=== PATIENT | female | born 2005 | race Two or more races ===

== ENCOUNTER 2024-08-15 08:42 | Emergency (ER) | payer SELFPAY ==
[2024-08-15 08:50] VITALS: BP 141/104; PULSE 82; RESP 16; TEMP 36.1; O2SAT 98; BMI 41.4
[2024-08-15 08:58] VITALS: BP 122/84
--- OUTSIDE RECORDS SUMMARY | 2024-08-15 09:45 | XMS_ITS | Clinical Summary ---
Author Organization [facility] Address [address] [place] [phone] Phone Care Team Providers Care Marketing Support Manager Name Role Phone Unavailable Primary Care Provider Unavailabl e Allergies No known active allergies Medications aluminum chloride (DRYSOL) 20 % external solution Apply 20 % topically. 6 Active albuterol HFA (PROAIR HFA) 108 (90 BASE) MCG/ACT inhalerIndicatio ns:Pharyngitis, unspecified etiology Inhale 2 puffs every 4 (four) hours as needed for wheezing. 1 Units 1 7 Active oxymetazoline 0.05 % nasal sprayIndications :Rhinitis, unspecified type Administer 1 spray into each nostril 2 (two) times a day for 3 days. Do NOT use for more than 3 days 1 Units 9 Active cetirizine (ZYRTEC ALLERGY) 10 MG tabletIndication s:Rhinitis, unspecified type Take 1 tablet (10 mg total) by mouth nightly as needed for allergies. 30 tablet 1 9 Active fluticasone (FLONASE) 50 MCG/ACT nasal sprayIndications :Rhinitis, unspecified type 1-2 sprays in each nostril for rhinitis 1 Units 3 9 Active Additional Information Patient not taking.Reported on 01/12/2020 Active Problems Problem Noted Date Diagnosed Date Depression 01/14/2021 Elevated cholesterol 01/14/2021 BMI greater than 95% for age [Z68.54] 01/15/2020 Assessment & Plan (01/15/2020 9:16 PM EST): Discussed: Limit sugar-sweetened beverages Eat at least 5 servings of fruits and vegetables per day Moderate to vigorous physical activity for 60 min per day Limit screen time to <2 hours/day Eat breakfast every day Limit eating out, especially fast food Have regular family meals Limit portion size Current moderate episode of major depressive disorder without prior episode 05/25/2017 Overview (04/07/2018): June 2017- Pt scored 11 on PHQ 9 reporting nearly everyday feeling depressed, trouble falling asleep, feeling tired and lack of motivation. Several days she struggles with concentration and being fidgety and/or slow. Pt's mother currently in hospice and dying from cancer. Grandmother is guardian and is worried Pt is not expressing her emotions related to mother dying. Pt avoids talking about it as well as sometimes avoids being around mother. Pt does well academically and behaviorally at school. 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 Return for yearly physical. Pt cell #: [phone] Assessment & Plan (04/25/2018 10:39 PM EST): Génesis tolerated the procedure well and understands that she needs to return for a urine HCG in 2 weeks. She understands that she may have some minor discomfort or bruising of her arm in the next few days. She will call with any redness, warmth, or fever. She understands that she needs to use a backup method of contraception for 7 days, and that for the duration of her device it protects her from only and not from HIV or other STDs. She understands that her device removal date is 04/21/2021 and a patient card was given. All questions answered. Obesity 05/03/2012 Assessment & Plan (04/07/2018 4:03 PM EST): Refer to [facility] Resolved Problems Problem Noted Date Diagnosed Date Resolved Date Pharyngitis 05/14/2016 04/07/2018 Strep throat 05/14/2016 04/20/2018 Immunizations Immunization Administration Dates Next Due COVID-19 Pfizer, monovalent, 12+ years 1 DTaP 03/26/2010, 6,06/18/2004,04/19,02/19/2004 DTaP, Unspecified 03/26/2010, 6,06/18/2004,04/19,02/19/2004 HPV Vaccine 9 Valent 08/01/2016,04/16/2015 Hep A 12/21/2007,02/25/2006 Hep B 10/01/2004,01/08/2004,2003 Hib, unspecified formulation 05/01/2005,04/19/19 05,02/19/2004 IPV 03/26/2010, 5,04/19/2004,02/18 Influenza 01/11/2015, 4,03/03/2013,04/22,04/20/2011,03/26/2010,11/08/2009 ,12/19/2008,12/21/2007,02/25/2006,12/24 Influenza, injectable, quadr ivalent, preservative free 01/14/2021,01/12/2020,03/02/2019,11/06 MMR 12/21/2007,01/02/2005 Meningococcal Conj (Menactra) MCV4P 01/12/2020,1 03/13/2014 Pneumococcal Conjugate 01/02/2005,2004,04/19/2004,02/18 Polio 03/26/2010, 5,04/19/2004,02/18 Tdap 01/11/2015 Varicella 04/16/2015,01/02/2005 Family History Medical History Relation Name Comments No Known Problems Father No Known Problems Maternal Grandfather Ovarian cancer Maternal Grandmother Thyroid disease Maternal Grandmother Ovarian cancer Mother Thyroid disease Mother's Sister Cancer Paternal Grandmother Relation Name Status Comments Father Maternal Grandfather Maternal Grandmother Mother Mother's Sister Other 1 N/C Other 2 dad big size-? thyroid Paternal Grandmother Social History Tobacco Use Types Packs/Day Years Used Date Smoking Tobacco: Never Smokeless Tobacco: Current Alcohol Use Standard Drinks/Week Comments Yes 1 (1 standard drink = 0.6 oz pur e alcohol) Hunger/Food Answer Date Recorded In the last 12 months, did y ou or your family ever eat less than you felt you should because there wasn't enough money for food? No 01/14/2021 Transportation Concerns Answer Date Rec orded In the last 12 months, have you or your family ever had to go without healthcare because you didn't have a way to get there? No 01/14/2021 Hazards in Home Answer Date Recorded Think about the place you li ve. Do you have problems with any of the following? Pests (mice or roaches), mold, no/not working smoke detectors, water leaks, no window guards. No 2020 Financing Utilities Answer Date Recorde d In the last 12 months, has t he electric, gas, oil, or water company threatened to shut off your services in your home? No 01/14/2021 Safety at Home Answer Date Recorded Are you or your family worried about feeling saf e in your home? No 01/14/2021 Outside Support Answer Date Recorded Do you feel that you need mo re support from other people or programs to help you care for yourself or your family? Yes 01/14/2021 Financing Health Concerns Answer Date R ecorded In the last 12 months, was t here a time when your child needed to see a doctor or get medications or supplies but could not because of cost? No 01/14/2021 Missing School or Work Answer Date Derek rded Did you or your child miss s chool or work because of a health problem that could have been avoided? No 01/14/2021 Comments No Sex and Gender Information Value Date Recorded Sex Assigned at Female 01/12/2020 5:06 PM EST Legal Sex Female 5:54 PM EST Gender Identity Female 01/12/2020 5:06 PM EST Sexual Orientation Straight 01/12/2020 5: 06 PM EST Last Filed Vital Signs Vital Sign Reading Time Taken Comments Blood Pressure 122/78 01/14/2021 3:20 PM EST Pulse 104 11/23/2018 12:34 PM EDT Temperature 36.8 C (98.2 F) 11/23/2018 12:34 PM EDT Respiratory Rate 20 11/23/2018 12:34 PM EDT Oxygen Saturation 99% 11/23/2018 12:34 PM EDT Inhaled Oxygen Concentration - - Weight 102 kg (224 lb) 01/14/2021 3:20 PM EST Height 173.3 cm (5' 8.24 ) 01/14/2021 3:20 PM ES T Body Mass Index 33.82 01/14/2021 3:20 PM EST Plan of Treatment Health Maintenance Due Date Last Done Comments Men B Vaccine (1 of 2 - Standard) 2019 Influenza Vaccines (#1) 2023 01/15/20 21, 01/12/2020, 03/02/2019, Additional history exists COVID-19 Vaccine (2 - 2023-2 5 season) 2023 01/14/2021 DTaP,Tdap,and Td Vaccines (7 - Td or Tdap) 01/11/2025 01/11/2015, 03/26/2010, 03/26/2010, Additional history exists Hepatitis B Vaccines Completed 10/01/2004, 01/08/2004, 2003 Pneumococcal Vaccine Completed 01/02/2005, 06/18/2004, 04/19/2004, Additional history exists HIB Vaccines Completed 05/01/2005, 03/27, 02/19/2004 Hepatitis A Vaccines Completed 12/21/2007, 02/25/19 07 MMR Vaccines Completed 12/21/2007, 01/02/2005 IPV Vaccines Completed 03/26/2010, 02/2010, 06/18/2004, Additional history exists Varicella Vaccines Completed 04/16/2015, 01/02/2005 HPV Vaccines Completed 08/01/2016, 04/16/2015 Meningococcal Vaccine Completed 01/12/2020, 015 Procedures * Due to [place] state law, this organization might not be sharing sensitive test results. Procedure Name Priority Date/Time Associated Diagnosis Comments CHLAMYDIA AND GONORRHEA, AMPLIFIED Routine 01/12/2020 2:15 PM EST Encounter for screening examination for sexually transmitted disease from Last 3 Months or Most Recently Relevant to Health Maintenance Results * Due to [place] state law, this organization might not be sharing sensitive test results. * Chlamydia and Gonorrhoea, Amplified (01/12/2020 2:15 PM EST) Chlamydia Trachomatis DNA BY PCR NOT DETECTED NOT DETECTED [facility] Neisseria gonorrhoeae DNA NOT DETECTED NOT DETECTED [facility] PCR Source Urine [facility] Urine (Urine) 01/12/2020 2:1 5 PM EST Narrative [facility] - 01/31/2020 4:44 PM EST Performed at: [facility] [address] [place] [address] Clam Bed Worker: William Box M.D. Kelli Redd MD LAB MICROBIOLOGY - GENERAL ORDER COLLIN Final Result [facility] from Last 3 Months or Most Recently Relevant to Health Maintenance [place] [address] [place] [address] [employer]
--- NOTE | 2024-08-15 09:48 | ED.GENADULT ---
HPI - General Adult General Chief complaint: Skin/Abscess/Foreign Body Stated complaint: ? Infection on Stomach Area Time Seen by Provider: 08/15/24 09:34 Source: patient Mode of arrival: ambulatory Limitations: no limitations History of Present Illness ED Provider: Jono Laura HPI narrative: 18 yold female healthy with no pmh presents to the ED for abdominal rash that she is concerned for infection. patient states she went swimming last week and had a one piece. Day later she noticed a black spot and than Days later tender surrounding warmth erythema developed. Patient denies any fever, chills, pus drainage, or foul odor. patient denies finding any insect bite/ticks on her body. Related Data Previous Rx's ?Medication ?Instructions ?Recorded cephalexin 500 mg capsule 500 mg PO QID 7 days #28 caps 08/15/24 doxycycline hyclate 100 mg capsule 100 mg PO BID 7 days #14 caps 08/15/24 Allergies Allergy/AdvReac Type Severity Reaction Status Date / Time No Known Allergies Allergy Verified 08/15/24 08:51 Review of Systems Review of Systems: erythematous warm area on abdomen that is tender Yes all other systems are reviewed and are negative [facility] Social History Social History Advance Directives: No Advance Directives Information Provided: Yes Physical Exam ED Vital Signs: Vital Signs - 24 hr 08/15/24 08:50 08/15/24 08:58 08/15/24 10:16 Temperature 97.0 F 98.5 F Pulse Rate 82 75 Respiratory Rate 16 16 Blood Pressure 141/104 H 122/84 127/83 Pulse Oximetry 98 98 Oxygen Delivery Method Room Air Room Air 08/15/24 10:31 Temperature 98.5 F Pulse Rate 75 Respiratory Rate 16 Blood Pressure 127/83 Pulse Oximetry 98 Oxygen Delivery Method Room Air BMI result Body Mass Index 41.4 Const General: cooperative, healthy appearing, comfortable, no acute distress, well developed, alert, awake and Physically active Orientation/consciousness: patient oriented x3 HENMT Head: Yes normal to inspection, Yes No palpable skull fracture present, Yes normocephalic and Yes atraumatic Eyes General: appearance normal, both eyes and all related structures Neck Neck: Yes normal visual inspection, Yes full ROM, Yes no lymphadenopathy, Yes no meningeal signs, Yes trachea midline, Yes supple, No anterior neck swelling and No tender Chest Chest palpation & inspection: normal inspection of the chest and normal palpation of entire chest wall Resp Effort & Inspection: normal respiratory effort and able to speak in complete sentences Auscultation: clear to auscultation bilaterally Cardio Jugular venous distension: no JVD Heart sounds: S1 normal heart sound present and S2 normal heart sound present GI Inspection: Yes normal to inspection Palpation (GI): Soft to palpation, not firm, nontender, no guarding and not rigid Abdomen image:  1. positive for erythema and warmth with slight tenderenss. positive for opening without any drainage odor. Negative for any tracking. Abdomen is soft nontender and benign. Negative for gangrene General: Yes no CVA tenderness Back/Spine/Pelvis Back: no CVA tenderness and No back tenderness Skin General skin exam: no rashes or lesions noted, elasticity normal and turgor normal Neuro General: patient oriented x3, gait normal, tone normal, moves all extremities, Normal light touch and pain sensation, no meningeal signs, no focal motor deficits, CN's II-XI intact bilaterally and normal sensation to monofilament Extrem General: Yes normal to inspection, Yes full ROM and Yes capillary refill normal Psych Appearance: grossly normal, well kempt and not disheveled Medical Decision Making Medical Decision Making MDM Narrative: 18-year-old female presents to ED for skin infection after swimming. Patient denies any trauma, hitting body on rock, or being bitten by fish or insect. Patient denies finding any tick or insect on her body. Exam shows cellulitis. Not suspecting peritoneal abscess or superficial abscess. Not suspecting osteomyelitis or necrotizing fasciitis. No indication for labs or imaging. We will be discharged with antibiotics recommend follow-up with primary care provider. Patient explained worrisome signs and informed to return to the ED immediately. Differential Diagnosis Differential Diagnoses: The differential diagnosis associated with the presentation includes ( Cellulitis, abscess) Admission/Observation Consideration of admission/observation: Escalation of care including admission/observation considered Independent Historian Clinical information obtained from an independent historian. History obtained from or confirmed by: Other (patient) Prescription Management I considered prescription management with: Antibiotic Discharge Plan Discharge Clinical Impression: Cellulitis Patient Disposition: Home, Self-Care Instructions: Cellulitis (ED), Warm Compress or Soak (ED) Additional Instructions: recommend follow-up with primary care provider. Return to the ED immediately for any increased redness, swelling, bluish black discoloration, fever, chills, foul odor, pus drainage, or any other concerning symptoms. Prescriptions: New cephalexin 500 mg capsule 500 mg PO QID 7 Days Qty: 28 0RF doxycycline hyclate 100 mg capsule 100 mg PO BID 7 Days Qty: 14 0RF Interventions: ED Discharge Assessment Last Done: 08/15/24 10:31 Discharge Date/Time: 08/15/24 10:31 Print Language: Serbian
[2024-08-15 10:16] VITALS: BP 127/83; PULSE 75; RESP 16; TEMP 36.9; O2SAT 98
[2024-08-15 10:31] VITALS: BP 127/83; PULSE 75; RESP 16; TEMP 36.9; O2SAT 98
== END 2024-08-15 10:31 | disposition home or self-care (01) ==
PROVIDERS: Emergency Provider Emergency Medicine
DX: L03.319 Cellulitis of trunk, unspecified (principal)
CPT/HCPCS: 99283